=== PATIENT | female | born 1990 | race Caucasian/White ===

== ENCOUNTER 2022-11-07 17:57 | Emergency (ER) | payer SELFPAY ==
[~2022-11-07] VITALS: Ht 167.6 cm; Wt 116.4 kg
[2022-11-07 18:09] VITALS: TEMP 98.2
[2022-11-07 18:43] LABS: BASO # 0.1 K/mm3 (0.0-0.2); BASO % 0.7 % (0.0-2.0); EOS # 0.2 K/mm3 (0.0-0.7); EOS % 3.2 % (0.0-4.0); GRAN # 4.4 K/mm3 (1.4-6.5); GRAN % 61.6 % (42.2-75.2); HEMATOCRIT 43.8 % (37.0-47.0); HEMOGLOBIN 14.5 g/dl (12.5-16.0); LYMPH # 1.8 K/mm3 (1.2-3.4); LYMPH % 25.1 % (20.0-51.0); MEAN CELL VOLUME 82 fl (80.0-100.0); MEAN CORPUSCULAR HEMOGLOBIN 27 pg (27-31); MEAN CORPUSCULAR HGB CONC 33 g/dl (33.0-37.0); MONO # 0.6 K/mm3 (0.1-0.6); PLATELET COUNT 416 K/mm3 (130-400); RED BLOOD COUNT 5.35 M/mm3 (4.10-5.30); REDCELL DISTRIBUTION WIDTH-CV 13.3 % (11.5-14.5)
[2022-11-07 18:59] LABS: COLLECTION METHOD CLEAN CATCH
[2022-11-07 19:03] LABS: ALBUMIN 3.7 gm/dL (3.5-5.0); BILIRUBIN,TOTAL 0.3 mg/dL (0.2-1.2); CALCIUM 9.5 mg/dL (8.4-10.2); CREATININE, serum 0.74 mg/dL (0.57-1.11); POTASSIUM 3.8 mmol/L (3.5-4.5); TOTAL PROTEIN 8.3 gm/dL (6.2-8.1)
[2022-11-07 19:06] LABS: URINE APPEARANCE Clear (CLEAR/HAZY); URINE BLOOD Negative (NEGATIVE); URINE COLOR Yellow (YELLOW); URINE GLUCOSE Negative (NEGATIVE); URINE KETONE Negative (NEGATIVE); URINE NITRATE Negative (NEGATIVE); URINE PROTEIN(semi-quant) Negative (NEGATIVE); URINE UROBILINOGEN 0.2 E.U/dL (0.2-1.0)
[2022-11-07 19:17] LABS: MUCOUS Present (NOT PRESENT); URINE BACTERIA Rare /hpf (NONE SEEN); URINE RBC 0-2 /hpf (0-2)
[2022-11-07 20:10] VITALS: BP 112/81; PULSE 80
== END 2022-11-07 20:16 | disposition home or self-care (01) ==
LOC: COL.ER 17:57
PROVIDERS: Nurse Practitioner Primary Care
DX: R10.9 Unspecified abdominal pain (principal); R35.0 Frequency of micturition; R03.0 Elevated blood-pressure reading, without diagnosis of hypertension; Z91.040 Latex allergy status; Z88.6 Allergy status to analgesic agent; Z88.5 Allergy status to narcotic agent; Z28.310 Unvaccinated for COVID-19
CPT/HCPCS: J2270; J2405; J7120; Q9967